=== PATIENT | male | born 1945 | race Caucasian/White ===

== ENCOUNTER 2019-07-19 06:45 | Outpatient (CLI) | payer MEDICARE, BC ==
[2019-07-19 12:20] LABS: Hemoglobin 14.7 g/dL (14.0-18.0); Mean Corpuscular HGB CONC 33.2 g/dL (32.0-36.0); Mean Corpuscular Hemoglobin 30.1 pg (27.0-31.0); Mean Corpuscular Volume 90.7 fL (78.0-98.0); Mean Platelet Volume 7.2 fL (7.4-10.4); Platelet Count 186 thou/uL (130-400); RBC Distribution Width 13.4 % (11.5-14.5); Red Blood Cell (RBC) Count 4.87 mill/uL (4.70-6.10); White Blood Cell (WBC) Count 5.1 thou/uL (4.8-10.8)
[2019-07-19 12:25] LABS: INR-International Normal Ratio 1.1; PTT 28.6 SEC (22.9-36.1); Prothrombin Time 14.2 SEC (12.0-14.7)
[2019-07-19 12:42] LABS: Anion Gap 10 mmol/L (10-20); BUN (Urea Nitrogen) 21 mg/dL (8.4-25.7); CRP (Inflammatory) Less than 0.50 mg/dL (= or < 0.5); Calc. Creatinine Clearance 0 mL/min (70-130); Carbon Dioxide 27 mmol/L (23-31); Chloride 102 mmol/L (98-107); Estimated GFR-MDRD 72; Glucose 90 mg/dL (83-110); Potassium 4.2 mmol/L (3.5-5.1); Sodium 135 mmol/L (136-145)
== END 2019-07-19 06:46 | disposition home or self-care (01) ==
LOC: LABBT 06:45
PROVIDERS: ATTEND Surgery
DX: Z01.818 Encounter for other preprocedural examination (principal); M48.061 Spinal stenosis, lumbar region without neurogenic claudication; M54.16 Radiculopathy, lumbar region
CPT/HCPCS: 80048; 85027; 85610; 85652; 85730; 86140; 93005; 93010

== ENCOUNTER 2019-07-22 06:47 | Day surgery (SDC) | payer MEDICARE, BC ==
[2019-07-22] MEDS ORDERED: Fentanyl 100 MCG/2 ML VIAL ONE ×5 (08:30→14:43)
[2019-07-22] MEDS ORDERED: Sodium Chloride 0.9% 10 ML ONE (08:58)
[2019-07-22] MEDS ORDERED: Thrombin 5000 UNITS/5 ML VIAL ONE ×2 (08:58→12:11)
[2019-07-22] MEDS ORDERED: Dexamethasone 20 MG/5 ML VIAL ONE (10:10)
[2019-07-22] MEDS ORDERED: ePHEDrine/0.9% NaCl/PF SYRINGE 50 mg/10 ml ONE (10:10)
[2019-07-22] MEDS ORDERED: Rocuronium Bromide 10 MG/ML (10ML VIAL) ONE (10:10)
[2019-07-22] MEDS ORDERED: Ondansetron PF 4 MG/2 ML Vial ONE (10:10)
[2019-07-22] MEDS ORDERED: Glycopyrrolate 0.2 MG/ML 5 ML SYRINGE ONE (10:10)
[2019-07-22] MEDS ORDERED: Lidocaine 1% PF 5 ML VIAL ONE (10:10)
[2019-07-22] MEDS ORDERED: PHENYLEPHRINE-NS 100 MCG/ML 10 ML SYRINGE ONE (10:10)
[2019-07-22] MEDS ORDERED: PROPOFOL 200 MG/20 ML VIAL ONE (10:10)
[2019-07-22] MEDS ORDERED: Phenylephrine HCL 10 MG/ML VIAL ONE (11:43)
[2019-07-22] MEDS ORDERED: Bisacodyl 10 MG SUPP PR PRN (13:13)
[2019-07-22] MEDS ORDERED: Mag-Al 1200 mg/1200 mg/30 ML UDCUP PO PRN (13:13)
[2019-07-22] MEDS ORDERED: Acetaminophen/Codeine 30-300mg Tablet PO PRN (13:13)
[2019-07-22] MEDS ORDERED: Acetaminophen 325 MG TAB PO PRN (13:13)
[2019-07-22] MEDS ORDERED: Ondansetron PF 4 MG/2 ML Vial IVP PRN (13:13)
[2019-07-22] MEDS ORDERED: HYDROcodone/Acetaminophen 7.5/325 mg Tablet PO PRN (13:13)
[2019-07-22] MEDS ORDERED: Fleet Enema 133 ML BOT PR PRN (13:13)
[2019-07-22] MEDS ORDERED: traMADol HCl 50 MG TAB PO PRN (13:13)
[2019-07-22] MEDS ORDERED: Milk Of Magnesia 30 ML UDCUP PO PRN (13:13)
[2019-07-22] MEDS ORDERED: Hyoscyamine Sulfate SL 0.125 mg Tablet SL PRN (13:16)
[2019-07-22] MEDS ORDERED: Promethazine HCl 25 MG/ML VIAL IM PRN (13:34)
[2019-07-22] MEDS ORDERED: Ondansetron HCl/PF 4 MG/2 ML Vial IVP PRN (13:34)
[2019-07-22] MEDS ORDERED: Promethazine HCl 25 MG/ML VIAL SLOW IVP PRN (13:34)
--- NOTE | 2019-07-22 13:46 | OP ---
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 PROCEDURES PERFORMED: 1. L1-L2 laminectomy, partial facetectomy, and foraminotomy. 2. Bilateral revision of L2-L3, L3-L4, and L4-L5. Revision hemilaminotomies, foraminotomies for decompression of the common dural tube and nerve roots. DESCRIPTION OF PROCEDURE: After informed consent was obtained from the patient, the patient was brought to the OR. Proper patient, pause, and identification were carried out. He was placed under excellent general endotracheal anesthesia and positioned prone on the OR table. The prior lumbar wound was identified and extended somewhat cephalad. This region was sterilely cleansed, prepared, and draped. Proper patient, pause, and identification was then carried out. The wound was then opened with combination of sharp, monopolar, and blunt dissection. The L1, L2, L3, L4, and L5 segments were all exposed. Localization film confirmed our area of interest. We then performed L1-L2 laminectomy, partial facetectomy, foraminotomies, and bilateral L2-L3, L3-L4, and L4-L5 revision hemilaminotomy and foraminotomies. We had excellent decompression of common dural tube in all of the nerve roots. There was no spinal fluid leak. Hemostasis maximized throughout. The wound was then closed in anatomic layers following sprinkling of vancomycin powder. The patient emerged from anesthesia. Job ID: [id number]
[2019-07-22 16:02] VITALS: BMI 30.7
[2019-07-22] MEDS: Pregabalin 50 MG CAP PO SCH ×2 (16:07→19:49)
[2019-07-22] MEDS: Cyclobenzaprine 10 MG TAB PO SCH ×2 (16:09→19:49)
[2019-07-22] MEDS: Sodium Chloride 0.9% 1,000 ML IV SCH ×2 (16:10→20:57)
[2019-07-22] MEDS: CEFAZOLIN 2 GM in Premix Bag 1 BAG IVPB SCH (16:15)
[2019-07-22] MEDS: Terazosin HCl 1 MG CAP PO SCH (19:49)
[2019-07-22] MEDS: ALPRAZolam 0.5 MG TAB PO SCH (19:49)
[2019-07-22] MEDS: HYDROcodone/Acetaminophen 7.5/325 mg Tablet PO PRN (19:56)
[2019-07-23] MEDS: CEFAZOLIN 2 GM in Premix Bag 1 BAG IVPB SCH (02:09)
[2019-07-23] MEDS: HYDROcodone/Acetaminophen 7.5/325 mg Tablet PO PRN ×3 (06:28→20:23)
[2019-07-23] MEDS: Cyclobenzaprine 10 MG TAB PO SCH (08:30)
[2019-07-23] MEDS: ALPRAZolam 0.5 MG TAB PO SCH ×2 (08:30→20:24)
[2019-07-23] MEDS: Pregabalin 50 MG CAP PO SCH ×3 (08:30→20:23)
[2019-07-23] MEDS: FLUoxetine HCl 20 MG CAP PO SCH (08:30)
[2019-07-23] MEDS: Montelukast Sodium 10 mg Tablet PO SCH (08:31)
[2019-07-23] MEDS ORDERED: Prevnar 13-Val Conj/PF 0.5 ML SYRINGE IM ONE (09:00)
[2019-07-23] MEDS ORDERED: FLU VACC TS2019-20(65YR UP)/PF 180 MCG/0.5 ML SYRINGE IM ONE (09:00)
[2019-07-23] MEDS: Fluticasone Propionate Nasal Spray 16 gm Bottle NASAL SCH (10:00)
[2019-07-23] MEDS ORDERED: tiZANidine HCl 4 MG TAB PO PRN (11:57)
--- NOTE | 2019-07-23 12:38 | PRG ---
DATE OF SERVICE: 07/23/2019 This is Jaciel Torres PA-C dictating a report for Ozzie Montalvo MD. Mr. Morris is postoperative day #1 having undergone essentially L1-S1 laminectomies, partial facetectomies, and foraminotomies. The patient is doing very well postoperatively. In fact, he is doing so well, he is sitting out of bed and would like to start ambulating. Ideally, I would like him to have his LSO brace on any time he is out of bed and he may begin ambulating at that time. We will discontinue his Griffith catheter at this time. The patient notes almost complete resolution of his bilateral lower extremity symptoms, especially into the left leg and significant improvement in his left leg weakness. He and his were thrilled with his outcome postoperatively. He will likely need inpatient rehab however and we have completed the paperwork; however, if he continues to demonstrate improvement, he may be a good candidate to go home with home health. Please call with any changes in the patient's neurologic status. Otherwise, he has some trace weakness into the left iliopsoas and left quadriceps, but otherwise he is significantly improved when compared to his left leg weakness. He has good strength in the right leg. Again, please call with any changes in the patient's neurologic status. Otherwise, we hope to have him discharged in the next day or two. Job ID: [id number]
[2019-07-23] MEDS: Sodium Chloride 0.9% 1,000 ML IV SCH (17:30)
[2019-07-23] MEDS: Terazosin HCl 1 MG CAP PO SCH (20:24)
[2019-07-24] MEDS: HYDROcodone/Acetaminophen 7.5/325 mg Tablet PO PRN ×2 (00:23→05:45)
[2019-07-24] MEDS: Sodium Chloride 0.9% 1,000 ML IV SCH (05:47)
--- NOTE | 2019-07-24 08:05 | PRG ---
DATE OF SERVICE: 07/24/2019 I saw Mr. Morris in his hospital room this morning. He is 2 days out from lumbar laminectomy. This is a repeat surgery for him and he has realistic expectations for his recovery. Mr. Morris already showered this morning. He is anticipating discharge today. His vital signs and neurological examination suggested that discharge is reasonable. I went over home going activity restrictions. He has followup arrangements already scheduled with Dr. Montalvo and he has prescriptions ready for him. Job ID: [id number] [facility]
[2019-07-24 08:31] VITALS: BP 115/68; TEMP 98.1
[2019-07-24] MEDS: FLUoxetine HCl 20 MG CAP PO SCH (09:13)
[2019-07-24] MEDS: Montelukast Sodium 10 mg Tablet PO SCH (09:13)
[2019-07-24] MEDS: Pregabalin 50 MG CAP PO SCH (09:15)
[2019-07-24] MEDS: ALPRAZolam 0.5 MG TAB PO SCH (09:15)
[2019-07-24] MEDS: Fluticasone Propionate Nasal Spray 16 gm Bottle NASAL SCH (09:16)
== END 2019-07-24 10:05 | disposition home or self-care (01) ==
LOC: SDC 06:47 → SJJU 13:13 → INTOOBSV 15:43 → UNDOADMOB 15:43 → UNDODISOB 07-24 10:05 → SDC 07-24 10:05
PROVIDERS: ATTEND Surgery
PROC: 01NB0ZZ Release Lumbar Nerve, Open Approach (ICD-10-PCS; principal; 2019-07-22)
DX: M48.061 Spinal stenosis, lumbar region without neurogenic claudication (principal); M54.16 Radiculopathy, lumbar region; I10 Essential (primary) hypertension; E78.5 Hyperlipidemia, unspecified; G47.30 Sleep apnea, unspecified; F32.9 Major depressive disorder, single episode, unspecified; F41.9 Anxiety disorder, unspecified; N40.0 Benign prostatic hyperplasia without lower urinary tract symptoms; Z85.72 Personal history of non-Hodgkin lymphomas; Z87.891 Personal history of nicotine dependence; Z79.52 Long term (current) use of systemic steroids; Z79.899 Other long term (current) drug therapy; Z88.5 Allergy status to narcotic agent; Z99.89 Dependence on other enabling machines and devices
CPT/HCPCS: 76000; 80048; 85027; 85610; 85652; 85730; 86140; 93005; J0690; J1100; J2001; J2370; J2405; J2704; J3010; J3370; J3490

== ENCOUNTER 2021-10-24 19:30 | Outpatient (CLI) | payer MEDICARE, BC | END 2021-10-24 19:31 | disposition home or self-care (01) | LOC: SLEEPLAB 19:30 | PROVIDERS: ATTEND Internal Medicine | DX: G47.33 Obstructive sleep apnea (adult) (pediatric) (principal); R53.83 Other fatigue; R06.83 Snoring; I10 Essential (primary) hypertension; G47.00 Insomnia, unspecified; G47.10 Hypersomnia, unspecified | CPT/HCPCS: 95810 ==

== ENCOUNTER 2022-10-02 00:33 | Emergency (ER) | payer MEDICARE, BC ==
[2022-10-02 01:19] LABS: Bilirubin Negative (Negative); Blood, Urine Negative (Negative); Clarity Clear (Clear); Glucose, Urine (Dipstick) Normal (Negative); Ketone, Urine Negative (Negative); Leukocyte Negative Leu/uL (Negative); Nitrite Negative (Negative); Protein, Urine (Dipstick) Negative (Neg-Trace); Specific Gravity, Urine 1.015 (1.002-1.036); Urobilinogen Normal mg/dL (Less than 2)
[2022-10-02 01:45] LABS: #Lymphocytes 0.5 thou/uL (1.20-3.40); #Monocytes 0.9 thou/uL (0.11-0.59); %Basophils 0.2 % (0.0-1.0); %Eosinophils 0.2 % (0.0-10.0); %Lymphocytes 4.3 % (21.0-51.0); %Monocytes 7.1 % (0.0-10.0); %Neutrophils 88.2 % (42.0-75.0); Hemoglobin 12.2 g/dL (14.0-18.0); Mean Corpuscular HGB CONC 33.6 g/dL (32.0-36.0); Mean Corpuscular Hemoglobin 32.2 pg (27.0-31.0); Mean Platelet Volume 7.3 fL (7.4-10.4); Platelet Count 209 10x3/uL (130-400); RBC Distribution Width 12.8 % (11.5-14.5); Red Blood Cell (RBC) Count 3.79 mill/uL (4.70-6.10); White Blood Cell (WBC) Count 12.5 10x3/uL (4.8-10.8)
[2022-10-02 02:02] LABS: ALT (SGPT) 14 U/L (8-55); AST (SGOT) 20 U/L (5-34); Albumin 4.1 g/dL (3.4-4.8); Alkaline Phosphatase 117 U/L (40-110); Anion Gap 13 mmol/L (10-20); BUN (Urea Nitrogen) 19 mg/dL (8.4-25.7); Bilirubin, Total 0.7 mg/dL (0.2-1.2); Calc. Creatinine Clearance 0 mL/min (70-130); Calcium 9.7 mg/dL (7.8-10.44); Carbon Dioxide 24 mmol/L (23-31); Chloride 104 mmol/L (98-107); Estimated GFR 55; Globulin 3.1 g/dL (2.4-3.5); Glucose 155 mg/dL (83-110); Lipase 16 U/L (8-78); Potassium 3.9 mmol/L (3.5-5.1); Protein, Total 7.2 g/dL (5.8-8.1); Sodium 137 mmol/L (136-145)
[2022-10-02] MEDS ORDERED: Piperacillin/Tazobactam 4.5 GM VIAL ONE (02:20)
[2022-10-02 03:00] LABS: SARS-CoV-2 NAA Rapid Test Not Detected (NotDetected)
[2022-10-02] MEDS ORDERED: Iopamidol-370 76% 500 ML 1 ML ONE (09:05)
== END 2022-10-02 04:55 | disposition home or self-care (01) ==
LOC: ERS 00:33
DX: K57.30 Diverticulosis of large intestine without perforation or abscess without bleeding (principal); I10 Essential (primary) hypertension; Z20.822 Contact with and (suspected) exposure to COVID-19
CPT/HCPCS: 0240U; 71045; 74177; 80053; 81003; 83605; 83690; 84484; 85025; 87040; 87086; 93005; 36415; 96365; J2543; Q9967

== ENCOUNTER 2023-08-14 16:23 | Outpatient (CLI) | payer MEDICARE, BC | END 2023-08-14 16:24 | disposition home or self-care (01) | LOC: RAD 16:23 | PROVIDERS: ATTEND Physician Assistant Medical | DX: R10.10 Upper abdominal pain, unspecified (principal); K51.90 Ulcerative colitis, unspecified, without complications; R05.9 Cough, unspecified; R63.4 Abnormal weight loss; R11.0 Nausea | CPT/HCPCS: 36415; 71046; 80053; 81001; 83690; 84153; 84443; 85025; 86140 ==

== ENCOUNTER 2023-10-06 13:54 | Outpatient (CLI) | payer MEDICARE ==
[~2023-10-06 13:54] MED LIST: Iopamidol 370 76% 100 ML VIAL ONE
== END 2023-10-06 13:55 | disposition home or self-care (01) ==
LOC: BICCT 13:54
PROVIDERS: ATTEND Physician Assistant Medical
DX: K51.90 Ulcerative colitis, unspecified, without complications (principal); R10.10 Upper abdominal pain, unspecified; R63.4 Abnormal weight loss; R16.0 Hepatomegaly, not elsewhere classified
CPT/HCPCS: 74177; 82565; Q9967

== ENCOUNTER 2023-10-15 12:48 | Outpatient (CLI) | payer MEDICARE | END 2023-10-15 12:49 | disposition home or self-care (01) | LOC: SCSMRI 12:48 | PROVIDERS: ATTEND Physician Assistant Medical | DX: K86.89 Other specified diseases of pancreas (principal); R16.0 Hepatomegaly, not elsewhere classified; K57.10 Diverticulosis of small intestine without perforation or abscess without bleeding; K76.9 Liver disease, unspecified; N28.1 Cyst of kidney, acquired; K76.89 Other specified diseases of liver; R59.0 Localized enlarged lymph nodes | CPT/HCPCS: 74018; 74183 ==

== ENCOUNTER 2023-10-16 13:32 | Outpatient (CLI) | payer MEDICARE | END 2023-10-16 13:33 | disposition home or self-care (01) | LOC: BICCT 13:32 | PROVIDERS: ATTEND Physician Assistant Medical | DX: R16.0 Hepatomegaly, not elsewhere classified (principal); K86.2 Cyst of pancreas; K86.89 Other specified diseases of pancreas; R59.0 Localized enlarged lymph nodes; K76.9 Liver disease, unspecified | CPT/HCPCS: 71260 ==